=== PATIENT | male | born 1950 | race Caucasian/White ===

== ENCOUNTER 2018-06-22 10:20 | Inpatient (IN) | payer OTHER ==
[~2018-06-22] VITALS: Ht 172.7 cm; Wt 63.2 kg
[~2018-06-22 10:20] MED LIST: ASPIRIN 32325 MG/TAB PO; ATIVAN 0.50.5 MG/TAB PO; NORCO 325 MG-51 TAB PO; NORCO 325 MG-7.1 TAB PO; TENORMIN 5050 MG/TAB PO; TYLENOL 325MG325 MG PO; ZESTRIL40 MG PO
[2018-08-16] VITALS (10 sets, daily range): BP systolic 125–164; BP diastolic 42–99; PULSE 64–82; TEMP 97.7–98.5
[2018-08-16] MEDS ORDERED: TRIAM OI 15 0.025 TOP (07:58)
[2018-08-16] MEDS ORDERED: METAMUCIL3.4 GM/DOS PO (07:58)
[2018-08-16] MEDS ORDERED: PROSTATE PO (08:42)
[2018-08-17 08:10] VITALS: BP 125/82; PULSE 72; TEMP 97.9
[2018-08-17] MEDS ORDERED: NORCO 325 MG-7.1 TAB PO (08:13)
[2018-08-17] MEDS ORDERED: ASPIRIN 32325 MG/TAB PO (08:13)
[2018-08-17] MEDS ORDERED: ROXICODONE 55 MG/TAB PO (08:14)
[2018-08-17] MEDS ORDERED: TYLENOL 500MG500 MG PO (08:15)
[2018-08-17 11:56] VITALS: BP 141/78; PULSE 103; TEMP 97.9
== END 2018-08-17 16:25 | disposition home or self-care (01) | DRG 483 ==
LOC: JCC 08-16 07:00 → EDBD 08-16 07:30 → JCC 08-16 10:45
PROVIDERS: Orthopaedic Surgery
PROC: 0RRK0JZ Replacement of Left Shoulder Joint with Synthetic Substitute, Open Approach (ICD-10-PCS; principal; 2018-08-16 11:55)
DX: M19.012 Primary osteoarthritis, left shoulder (principal); I48.91 Unspecified atrial fibrillation; I10 Essential (primary) hypertension
CPT/HCPCS: A4314; A4566; A9284; C1713; C1776; J0171; J0690; J1100; J2250; J2370; J2405; J2704; J3010; J7030; J7050